=== PATIENT | male | born 1965 | race Caucasian/White ===

== ENCOUNTER 2018-12-20 17:33 | Inpatient (IN) | payer OTHER ==
[2018-12-20 18:11] VITALS: BMI 28.0
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
[2018-12-20] MEDS ORDERED: LOPERAMIDE HCL 2 MG CAPSULE PO PRN (19:20)
[2018-12-20] MEDS ORDERED: ACETAMINOPHEN 325 MG TABLET (FP) PO PRN (19:20)
[2018-12-20] MEDS ORDERED: MAG HYDROX/AL HYDROX/SIMETH 30 ML UNIT-DOSE CUP PO PRN (19:20)
[2018-12-20] MEDS ORDERED: guaiFENesin/D-METHORPHAN HB 10 ML UNIT-DOSE CUPS PO PRN (19:20)
[2018-12-20] MEDS ORDERED: P-EPHED 60MG/TRIPROLIDI 2.5MG TABLET PO PRN (19:20)
[2018-12-20] MEDS ORDERED: IBUPROFEN 400 MG TABLET (FP) PO PRN (19:20)
[2018-12-20] MEDS ORDERED: MENTHOL/PHENOL 1 EACH UD MM PRN (19:20)
[2018-12-20] MEDS ORDERED: MAGNESIUM HYDROX 2400MG/30ML ORAL SUSPENSION 30 ML CUP PO PRN (19:20)
[2018-12-20] MEDS ORDERED: MAGNESIUM CITRATE 300 ML BOTTLE PO PRN (19:20)
[2018-12-20] MEDS: THIAMINE HCL 100 MG TABLET (FP) PO SCH (22:33)
[2018-12-21 02:02] LABS: URINE APPEARANCE CLEAR; URINE BILIRUBIN NEGATIVE (<2.0 mg/dL); URINE COLOR YELLOW; URINE GLUCOSE (UA) NEGATIVE (NEGATIVE); URINE KETONE NEGATIVE (NEGATIVE); URINE LEUK ESTERASE NEGATIVE (NEGATIVE); URINE NITRITE NEGATIVE (NEGATIVE); URINE PROTEIN NEGATIVE (NEGATIVE); URINE UROBILINOGEN NEGATIVE mg/dL (0.2-1.0)
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
[2018-12-21] MEDS: PRENATAL VITAMINS W/ FOLIC ACID TABLET (FP) PO SCH (10:21)
[2018-12-21] MEDS ORDERED: TUBERCULIN PPD 5 TU/0.1ML VIAL ID ONE (10:23)
[2018-12-21 12:09] LABS: HEMATOCRIT 44.1 % (35.4-49); HEMOGLOBIN 14.7 GM/dL (11.7-16.9); MCH 28.2 pg (25.7-33.7); MCHC 33.3 g/dl (32.0-35.9); MEAN CELL VOLUME 84.6 fl (80-96); MEAN PLT VOLUME 9.7 fl (7.5-11.1); PLATELET COUNT 172 K/MM3 (134-434); RBC 5.21 M/mm3 (4.00-5.60); RDW 15.2 % (11.9-15.9); WHITE BLOOD COUNT 15.4 K/mm3 (4.0-10.0)
[2018-12-21 12:35] LABS: ALBUMIN 3.7 g/dl (3.4-5.0); ALK PHOS 74 U/L (45-117); ANION GAP 7 MMOL/L (8-16); BILIRUBIN,TOTAL 0.4 mg/dL (0.2-1); BLOOD UREA NITROGEN 16 mg/dL (7-18); CALCIUM 9.2 mg/dL (8.5-10.1); CHLORIDE 109 mmol/L (98-107); CO2 25 mmol/L (21-32); GLUCOSE,RANDOM 135 mg/dL (74-106); POTASSIUM 4.1 mmol/L (3.5-5.1); SGOT/AST 18 U/L (15-37); SGPT/ALT 29 U/L (13-61); SODIUM 142 mmol/L (136-145); TOT PROT 7.6 g/dl (6.4-8.2)
[2018-12-21] MEDS ORDERED: PT OWN MED DRAWER 7, Y5N ONE (14:51)
[2018-12-21] MEDS: BENZTROPINE MESYLATE 1 MG TABLET (FP) PO SCH (14:53)
[2018-12-21] MEDS: SERTRALINE HCL 50 MG TABLET (FP) PO SCH (14:53)
[2018-12-21] MEDS: DIVALPROEX SODIUM 500 MG TABLET E.C. PO SCH ×2 (14:53→20:59)
[2018-12-21] MEDS ORDERED: ALBUTEROL SO4 8 GM HFA INHALER IH PRN (14:59)
[2018-12-21] MEDS ORDERED: ALBUTEROL SO4 0.083% IH SOL 2.5 MG/3 ML VIAL.NEB. NEB ONE (15:05)
--- NOTE | 2018-12-21 15:10 | EKG ---
Test Reason : Blood Pressure : / mmHG Vent. Rate : 065 BPM Atrial Rate : 065 BPM P-R Int : 192 ms QRS Dur : 098 ms QT Int : 410 ms P-R-T Axes : 063 -18 050 degrees QTc Int : 426 ms NORMAL SINUS RHYTHM NORMAL ECG NO PREVIOUS ECGS AVAILABLE Confirmed by Bro Maier MD ([id number]) on 12/21/2018 3:10:21 PM Referred By: Confirmed By:Bro Maier MD
[2018-12-21] MEDS: predniSONE 20 MG TABLET (UD) PO SCH (15:16)
--- NOTE | 2018-12-21 15:43 | PN ---
[facility] Progress Note Note: PATIENT SEEN FOR ABNORMAL CHEST XRAY AND ELEVATED WBC. Vital Signs Temperature 98.3 F 12/21/18 07:36 Pulse Rate 93 H 12/21/18 07:36 Respiratory Rate 18 12/21/18 07:36 Blood Pressure 146/79 12/21/18 07:36 O2 Sat by Pulse Oximetry (%) Laboratory Tests 12/20/18 12/21/18 12/21/18 22:50 10:35 10:35 WBC 15.4 H RBC 5.21 Hgb 14.7 Hct 44.1 MCV 84.6 MCH 28.2 MCHC 33.3 RDW 15.2 D Plt Count 172 MPV 9.7 Sodium 142 Potassium 4.1 Chloride 109 H Carbon Dioxide 25 Anion Gap 7 L BUN 16 Creatinine 1.0 Creat Clearance w eGFR > 60 Random Glucose 135 H Calcium 9.2 Total Bilirubin 0.4 AST 18 ALT 29 Alkaline Phosphatase 74 Total Protein 7.6 Albumin 3.7 Urine Color Yellow Urine Appearance Clear Urine pH 7.0 D Ur Specific [place] 1.029 Urine Protein Negative Urine Glucose (UA) Negative Urine Ketones Negative Urine Blood Negative Urine Nitrite Negative Urine Bilirubin Negative Urine Urobilinogen Negative Ur Leukocyte Esterase Negative Valproic Acid HIV 1&2 Antibody Screen HIV P24 Antigen 12/21/18 12/21/18 10:35 11:35 WBC RBC Hgb Hct MCV MCH MCHC RDW Plt Count MPV Sodium Potassium Chloride Carbon Dioxide Anion Gap BUN Creatinine Creat Clearance w eGFR Random Glucose Calcium Total Bilirubin AST ALT Alkaline Phosphatase Total Protein Albumin Urine Color Urine Appearance Urine pH Ur Specific [place] Urine Protein Urine Glucose (UA) Urine Ketones Urine Blood Urine Nitrite Urine Bilirubin Urine Urobilinogen Ur Leukocyte Esterase Valproic Acid 35.9 L HIV 1&2 Antibody Screen Negative HIV P24 Antigen Negative CXR RESULTS + LEFT MID AND LOWER LUNG ZONE WITH NONCONSOLIDATED INFILTRATES. SUBJ: PATIENT DENIES CHEST PAIN, COUGH AND FEVER. + MILD MEDINA. OXYGEN SATS 95% ON ROOM AIR PE: ALERT AND ORIENTED X 3 SKIN WARM AND DRY CAR S1S2 RESP + FAINT WHEEZING RUL, DIMINISHED BREATHS SOUNDS LLL EXT FULL ROM, AMB AD MARTHA A/P: PNEUMONIA WILL START LEVAQUIN 500MG DAILY X 7 DAYS TO START NOW PREDNISONE 20MG DAILY X 5 DAYS TO START NOW ALUTEROL INH/NEB EVERY 4 HOURS PRN-STAT DOSE NOW REPEAT CXR IN ONE WEEK CONTINUE TO MONITOR CLINICALLY
[2018-12-21] MEDS: ALBUTEROL SO4 0.083% IH SOL 2.5 MG/3 ML VIAL.NEB. NEB PRN (17:55)
[2018-12-21] MEDS: THIAMINE HCL 100 MG TABLET (FP) PO SCH (20:59)
[2018-12-21] MEDS: risperiDONE 2 MG TABLET PO SCH (20:59)
[2018-12-22] MEDS: SERTRALINE HCL 50 MG TABLET (FP) PO SCH (09:52)
[2018-12-22] MEDS: BENZTROPINE MESYLATE 1 MG TABLET (FP) PO SCH (09:53)
[2018-12-22] MEDS: predniSONE 20 MG TABLET (UD) PO SCH (09:53)
[2018-12-22] MEDS: DIVALPROEX SODIUM 500 MG TABLET E.C. PO SCH ×2 (09:53→21:54)
[2018-12-22] MEDS: PRENATAL VITAMINS W/ FOLIC ACID TABLET (FP) PO SCH (09:53)
[2018-12-22] MEDS: GABAPENTIN 300 MG CAPSULE (FP) PO SCH ×2 (11:00→21:54)
--- NOTE | 2018-12-22 11:41 | EKG ---
Test Reason : Blood Pressure : / mmHG Vent. Rate : 058 BPM Atrial Rate : 058 BPM P-R Int : 198 ms QRS Dur : 104 ms QT Int : 402 ms P-R-T Axes : 067 -12 050 degrees QTc Int : 394 ms SINUS BRADYCARDIA OTHERWISE NORMAL ECG WHEN COMPARED WITH ECG OF 20-DEC-2018 21:41, NO SIGNIFICANT CHANGE WAS FOUND Confirmed by MAULIK GUARDADO MD ([id number]) on 12/22/2018 11:41:29 AM Referred By: JOSE BORREGO NP Confirmed By:MAULIK GUARDADO MD
--- NOTE | 2018-12-22 13:41 | PN ---
[facility] Progress Note Note: PATIENT SEEN TODAY FOR FOLLOW UP PNEUMONIA WITH DR. CASTANEDA. PATIENT REPORTS HAVING PRODUCTIVE COUGH WITH STREAKS OF BLOOD AND MID-STERNAL CHEST DISCOMFORT WITH INSPIRATION. PATIENT DENIES FEVER AND DIFFICULTY BREATHING ALTHOUGH HAS SOME MILD MEDINA. Vital Signs Temperature 97.9 F 12/22/18 07:09 Pulse Rate 67 12/22/18 09:30 Respiratory Rate 18 12/22/18 09:30 Blood Pressure 137/72 12/22/18 09:30 O2 Sat by Pulse Oximetry (%) Laboratory Tests 12/20/18 12/21/18 12/21/18 22:50 10:35 10:35 WBC 15.4 H RBC 5.21 Hgb 14.7 Hct 44.1 MCV 84.6 MCH 28.2 MCHC 33.3 RDW 15.2 D Plt Count 172 MPV 9.7 Sodium 142 Potassium 4.1 Chloride 109 H Carbon Dioxide 25 Anion Gap 7 L BUN 16 Creatinine 1.0 Creat Clearance w eGFR > 60 Random Glucose 135 H Calcium 9.2 Total Bilirubin 0.4 AST 18 ALT 29 Alkaline Phosphatase 74 Total Protein 7.6 Albumin 3.7 Urine Color Yellow Urine Appearance Clear Urine pH 7.0 D Ur Specific [place] 1.029 Urine Protein Negative Urine Glucose (UA) Negative Urine Ketones Negative Urine Blood Negative Urine Nitrite Negative Urine Bilirubin Negative Urine Urobilinogen Negative Ur Leukocyte Esterase Negative Valproic Acid HIV 1&2 Antibody Screen HIV P24 Antigen 12/21/18 12/21/18 10:35 11:35 WBC RBC Hgb Hct MCV MCH MCHC RDW Plt Count MPV Sodium Potassium Chloride Carbon Dioxide Anion Gap BUN Creatinine Creat Clearance w eGFR Random Glucose Calcium Total Bilirubin AST ALT Alkaline Phosphatase Total Protein Albumin Urine Color Urine Appearance Urine pH Ur Specific [place] Urine Protein Urine Glucose (UA) Urine Ketones Urine Blood Urine Nitrite Urine Bilirubin Urine Urobilinogen Ur Leukocyte Esterase Valproic Acid 35.9 L HIV 1&2 Antibody Screen Negative HIV P24 Antigen Negative PE: ALERT AND ORIENTED X 3 SKIN WARM AND DRY CAR S1S2 RESP CTA B/L UPPER LOBES, NO RHONCHI AUSCULTATED EXT FULL ROM, NO EDEMA AMB WITH CANE A/P: CXR REVIEWED WITH DR. CASTANEDA LLL/LML PNA EKG ORDERED AND SHOWS SINUS BRADYCARDIA AT 58 BPM CONTINUE LEVAQUIN/PREDNISONE/ALBUTEROL REPEAT CXR IN ONE WEEK CONTINUE TO MONITOR CLINICALLY
[2018-12-22] MEDS: THIAMINE HCL 100 MG TABLET (FP) PO SCH (21:54)
[2018-12-22] MEDS: risperiDONE 2 MG TABLET PO SCH (21:54)
[2018-12-23] MEDS ORDERED: PROMETHAZINE HCL 25 MG TABLET PO PRN (09:34)
[2018-12-23] MEDS: BENZTROPINE MESYLATE 1 MG TABLET (FP) PO SCH (09:36)
[2018-12-23] MEDS: DIVALPROEX SODIUM 500 MG TABLET E.C. PO SCH ×2 (09:36→21:51)
[2018-12-23] MEDS: predniSONE 20 MG TABLET (UD) PO SCH (09:36)
[2018-12-23] MEDS: GABAPENTIN 300 MG CAPSULE (FP) PO SCH ×2 (09:36→21:51)
[2018-12-23] MEDS: SERTRALINE HCL 50 MG TABLET (FP) PO SCH (09:36)
[2018-12-23] MEDS: PRENATAL VITAMINS W/ FOLIC ACID TABLET (FP) PO SCH (09:37)
--- NOTE | 2018-12-23 11:54 | PN ---
[facility] Progress Note Note: Patient seen for c/o nausea and acid reflux. Patient reports h/o GERD and is treated with Omeprazole 40mg daily prn. Patient offered Protonix as substitute as Omeprazole non-formulary, however,patient states medication does not work for him and would like to take his own medication. Patient retrieved Omeprazole prescription bottle from belongings and medication sent to pharmacy for verification. In meantime, will order Promethazine prn or nausea/vomiting. Vital Signs Temperature 97.9 F 12/23/18 07:16 Pulse Rate 87 12/23/18 09:30 Respiratory Rate 18 12/23/18 09:30 Blood Pressure 146/69 12/23/18 09:30 O2 Sat by Pulse Oximetry (%) =
[2018-12-23] MEDS: ALBUTEROL SO4 0.083% IH SOL 2.5 MG/3 ML VIAL.NEB. NEB PRN (13:41)
[2018-12-23] MEDS: THIAMINE HCL 100 MG TABLET (FP) PO SCH (21:51)
[2018-12-23] MEDS: risperiDONE 2 MG TABLET PO SCH (21:51)
[2018-12-23] MEDS: BUDESONIDE/FORMETEROL FUMARATE 160/4.5 mcg INHALER IH SCH (21:53)
[2018-12-24] MEDS: PATIENT'S OWN MEDICATION (NON-FORMULARY) (Omeprazole [Omeprazole] 40 MG) PO PRN (06:26)
[2018-12-24] MEDS: SERTRALINE HCL 50 MG TABLET (FP) PO SCH (09:35)
[2018-12-24] MEDS: predniSONE 20 MG TABLET (UD) PO SCH (09:36)
[2018-12-24] MEDS: DIVALPROEX SODIUM 500 MG TABLET E.C. PO SCH ×2 (09:36→21:52)
[2018-12-24] MEDS: BENZTROPINE MESYLATE 1 MG TABLET (FP) PO SCH (09:36)
[2018-12-24] MEDS: GABAPENTIN 300 MG CAPSULE (FP) PO SCH ×2 (09:36→21:52)
[2018-12-24] MEDS: PRENATAL VITAMINS W/ FOLIC ACID TABLET (FP) PO SCH (09:36)
[2018-12-24] MEDS: BUDESONIDE/FORMETEROL FUMARATE 160/4.5 mcg INHALER IH SCH ×2 (09:37→21:53)
[2018-12-24] MEDS: ALBUTEROL SO4 0.083% IH SOL 2.5 MG/3 ML VIAL.NEB. NEB PRN ×2 (09:37→14:16)
[2018-12-24] MEDS: NICOTINE POLACRILEX 4 MG GUM BC PRN ×2 (12:04→14:16)
[2018-12-24] MEDS: THIAMINE HCL 100 MG TABLET (FP) PO SCH (21:50)
[2018-12-24] MEDS: risperiDONE 2 MG TABLET PO SCH (21:52)
[2018-12-25] MEDS: PATIENT'S OWN MEDICATION (NON-FORMULARY) (Omeprazole [Omeprazole] 40 MG) PO PRN (09:02)
[2018-12-25] MEDS: BUDESONIDE/FORMETEROL FUMARATE 160/4.5 mcg INHALER IH SCH ×2 (09:02→22:13)
[2018-12-25] MEDS: SERTRALINE HCL 50 MG TABLET (FP) PO SCH (09:03)
[2018-12-25] MEDS: GABAPENTIN 300 MG CAPSULE (FP) PO SCH ×2 (09:03→22:12)
[2018-12-25] MEDS: PRENATAL VITAMINS W/ FOLIC ACID TABLET (FP) PO SCH (09:03)
[2018-12-25] MEDS: predniSONE 20 MG TABLET (UD) PO SCH (09:03)
[2018-12-25] MEDS: DIVALPROEX SODIUM 500 MG TABLET E.C. PO SCH ×2 (09:03→22:12)
[2018-12-25] MEDS: BENZTROPINE MESYLATE 1 MG TABLET (FP) PO SCH (09:03)
[2018-12-25] MEDS: ALBUTEROL SO4 0.083% IH SOL 2.5 MG/3 ML VIAL.NEB. NEB PRN (14:06)
[2018-12-25] MEDS ORDERED: PT OWN MED DRAWER 7, Y5N ONE (14:10)
[2018-12-25] MEDS: NICOTINE POLACRILEX 4 MG GUM BC PRN (14:12)
[2018-12-25] MEDS: risperiDONE 2 MG TABLET PO SCH (22:12)
[2018-12-25] MEDS: THIAMINE HCL 100 MG TABLET (FP) PO SCH (22:12)
[2018-12-26] MEDS ORDERED: PT OWN MED DRAWER 7, Y5N ONE (06:27)
[2018-12-26] MEDS: PATIENT'S OWN MEDICATION (NON-FORMULARY) (Omeprazole [Omeprazole] 40 MG) PO PRN (06:27)
[2018-12-26] MEDS: NICOTINE POLACRILEX 4 MG GUM BC PRN ×2 (07:14→13:12)
[2018-12-26] MEDS: SERTRALINE HCL 50 MG TABLET (FP) PO SCH (09:24)
[2018-12-26] MEDS: BENZTROPINE MESYLATE 1 MG TABLET (FP) PO SCH (09:24)
[2018-12-26] MEDS: DIVALPROEX SODIUM 500 MG TABLET E.C. PO SCH ×2 (09:24→22:16)
[2018-12-26] MEDS: GABAPENTIN 300 MG CAPSULE (FP) PO SCH ×2 (09:24→22:16)
[2018-12-26] MEDS: PRENATAL VITAMINS W/ FOLIC ACID TABLET (FP) PO SCH (09:25)
[2018-12-26] MEDS: BUDESONIDE/FORMETEROL FUMARATE 160/4.5 mcg INHALER IH SCH ×2 (09:25→22:16)
[2018-12-26] MEDS: predniSONE 20 MG TABLET (UD) PO SCH (09:25)
[2018-12-26] MEDS: ALBUTEROL SO4 0.083% IH SOL 2.5 MG/3 ML VIAL.NEB. NEB PRN ×2 (13:04→23:43)
[2018-12-26] MEDS: risperiDONE 2 MG TABLET PO SCH (22:16)
[2018-12-26] MEDS: THIAMINE HCL 100 MG TABLET (FP) PO SCH (22:17)
[2018-12-27] MEDS: PATIENT'S OWN MEDICATION (NON-FORMULARY) (Omeprazole [Omeprazole] 40 MG) PO PRN (06:52)
[2018-12-27] MEDS: NICOTINE POLACRILEX 4 MG GUM BC PRN ×3 (06:53→21:55)
[2018-12-27] MEDS: ALBUTEROL SO4 0.083% IH SOL 2.5 MG/3 ML VIAL.NEB. NEB PRN ×2 (07:12→21:54)
[2018-12-27] MEDS: PRENATAL VITAMINS W/ FOLIC ACID TABLET (FP) PO SCH (09:55)
[2018-12-27] MEDS: DIVALPROEX SODIUM 500 MG TABLET E.C. PO SCH ×2 (09:56→21:49)
[2018-12-27] MEDS: SERTRALINE HCL 50 MG TABLET (FP) PO SCH (09:56)
[2018-12-27] MEDS: BENZTROPINE MESYLATE 1 MG TABLET (FP) PO SCH (09:56)
[2018-12-27] MEDS: GABAPENTIN 300 MG CAPSULE (FP) PO SCH ×2 (09:56→21:48)
[2018-12-27] MEDS: BUDESONIDE/FORMETEROL FUMARATE 160/4.5 mcg INHALER IH SCH ×2 (09:56→21:50)
[2018-12-27] MEDS: THIAMINE HCL 100 MG TABLET (FP) PO SCH (21:48)
[2018-12-27] MEDS: MELATONIN 5 MG TABLETS PO PRN (21:49)
[2018-12-27] MEDS: risperiDONE 2 MG TABLET PO SCH (21:49)
[2018-12-28] MEDS: NICOTINE POLACRILEX 4 MG GUM BC PRN ×5 (07:21→21:55)
[2018-12-28] MEDS: ALBUTEROL SO4 0.083% IH SOL 2.5 MG/3 ML VIAL.NEB. NEB PRN (08:24)
[2018-12-28] MEDS: GABAPENTIN 300 MG CAPSULE (FP) PO SCH ×2 (09:43→21:53)
[2018-12-28] MEDS: DIVALPROEX SODIUM 500 MG TABLET E.C. PO SCH ×2 (09:43→21:53)
[2018-12-28] MEDS: PRENATAL VITAMINS W/ FOLIC ACID TABLET (FP) PO SCH (09:43)
[2018-12-28] MEDS: SERTRALINE HCL 50 MG TABLET (FP) PO SCH (09:44)
[2018-12-28] MEDS: BENZTROPINE MESYLATE 1 MG TABLET (FP) PO SCH (09:44)
[2018-12-28] MEDS: BUDESONIDE/FORMETEROL FUMARATE 160/4.5 mcg INHALER IH SCH ×2 (09:46→21:58)
[2018-12-28] MEDS: THIAMINE HCL 100 MG TABLET (FP) PO SCH (21:53)
[2018-12-28] MEDS: risperiDONE 2 MG TABLET PO SCH (21:53)
[2018-12-28] MEDS: MELATONIN 5 MG TABLETS PO PRN (21:54)
[2018-12-29] MEDS: PRENATAL VITAMINS W/ FOLIC ACID TABLET (FP) PO SCH (10:01)
[2018-12-29] MEDS: BENZTROPINE MESYLATE 1 MG TABLET (FP) PO SCH (10:01)
[2018-12-29] MEDS: DIVALPROEX SODIUM 500 MG TABLET E.C. PO SCH ×2 (10:01→21:48)
[2018-12-29] MEDS: GABAPENTIN 300 MG CAPSULE (FP) PO SCH ×2 (10:01→21:48)
[2018-12-29] MEDS: SERTRALINE HCL 50 MG TABLET (FP) PO SCH (10:01)
[2018-12-29] MEDS: NICOTINE POLACRILEX 4 MG GUM BC PRN ×4 (10:03→21:50)
[2018-12-29] MEDS: BUDESONIDE/FORMETEROL FUMARATE 160/4.5 mcg INHALER IH SCH ×2 (10:03→23:01)
--- NOTE | 2018-12-29 10:26 | PN ---
[facility] Progress Note Note: CXR RESULTS SHOW SIGNIFICANT CLEARING OF INFILTRATES. PATIENT REPORTS FEELING MUCH BETTER. PATIENT DENIES N/V/D, CP, SOB AND DIZZINESS. Vital Signs Temperature 98 F 12/29/18 07:01 Pulse Rate 69 12/29/18 07:01 Respiratory Rate 20 12/29/18 07:01 Blood Pressure 133/88 12/29/18 07:01 O2 Sat by Pulse Oximetry (%) PE: SKIN WARM AND DRY ALERT AND ORIENTED X 3 CAR S1S2 RESP CTA BL, +FAINT SCATTERED WHEEZES EXT AMB WITH CANE AD MARTHA A/P: PNA MUCH IMPROVED LEVAQUIN 500MG QD X 3 MORE DAYS CONTINUE ALBUTEROL NEB/INH ORDERED CONTINUE TO MONITOR CLINICALLY
[2018-12-29] MEDS: PATIENT'S OWN MEDICATION (NON-FORMULARY) (Omeprazole [Omeprazole] 40 MG) PO PRN (13:17)
[2018-12-29] MEDS ORDERED: PT OWN MED DRAWER 7, Y5N ONE (13:19)
[2018-12-29] MEDS: THIAMINE HCL 100 MG TABLET (FP) PO SCH (21:47)
[2018-12-29] MEDS: risperiDONE 2 MG TABLET PO SCH (21:48)
[2018-12-29] MEDS: MELATONIN 5 MG TABLETS PO PRN (21:48)
[2018-12-30] MEDS: ALBUTEROL SO4 0.083% IH SOL 2.5 MG/3 ML VIAL.NEB. NEB PRN ×2 (03:20→16:38)
[2018-12-30] MEDS: PATIENT'S OWN MEDICATION (NON-FORMULARY) (Omeprazole [Omeprazole] 40 MG) PO PRN (06:34)
[2018-12-30] MEDS: DIVALPROEX SODIUM 500 MG TABLET E.C. PO SCH ×2 (09:58→22:13)
[2018-12-30] MEDS: PRENATAL VITAMINS W/ FOLIC ACID TABLET (FP) PO SCH (09:58)
[2018-12-30] MEDS: GABAPENTIN 300 MG CAPSULE (FP) PO SCH ×2 (09:58→22:13)
[2018-12-30] MEDS: BENZTROPINE MESYLATE 1 MG TABLET (FP) PO SCH (09:58)
[2018-12-30] MEDS: SERTRALINE HCL 50 MG TABLET (FP) PO SCH (10:01)
[2018-12-30] MEDS: BUDESONIDE/FORMETEROL FUMARATE 160/4.5 mcg INHALER IH SCH ×2 (10:01→22:15)
[2018-12-30] MEDS: NICOTINE POLACRILEX 4 MG GUM BC PRN ×2 (10:02→16:39)
[2018-12-30 11:04] LABS: BASO % 0.8 % (0-2.0); EOS % 1.3 % (0-4.5); HEMATOCRIT 41.6 % (35.4-49); HEMOGLOBIN 13.8 GM/dL (11.7-16.9); LYMPH % 25.1 % (8-40); MCH 28.3 pg (25.7-33.7); MCHC 33.2 g/dl (32.0-35.9); MEAN CELL VOLUME 85.2 fl (80-96); MEAN PLT VOLUME 9.3 fl (7.5-11.1); MONO % 10.5 % (3.8-10.2); NEUT % 62.3 % (42.8-82.8); PLATELET COUNT 190 K/MM3 (134-434); RBC 4.89 M/mm3 (4.00-5.60); RDW 15.2 % (11.9-15.9); WHITE BLOOD COUNT 8.5 K/mm3 (4.0-10.0)
[2018-12-30 14:23] LABS: ANISOCYTOSIS 1+; MACROCYTOSIS 0; OVALOCYTE 1+; PLATELET ESTIMATE NORMAL
[2018-12-30] MEDS: THIAMINE HCL 100 MG TABLET (FP) PO SCH (22:13)
[2018-12-30] MEDS: risperiDONE 2 MG TABLET PO SCH (22:13)
[2018-12-30] MEDS: MELATONIN 5 MG TABLETS PO PRN (22:15)
[2018-12-31] MEDS: ALBUTEROL SO4 0.083% IH SOL 2.5 MG/3 ML VIAL.NEB. NEB PRN ×3 (03:48→14:09)
[2018-12-31] MEDS: PATIENT'S OWN MEDICATION (NON-FORMULARY) (Omeprazole [Omeprazole] 40 MG) PO PRN (06:23)
[2018-12-31] MEDS: NICOTINE POLACRILEX 4 MG GUM BC PRN ×3 (06:24→22:06)
[2018-12-31] MEDS ORDERED: PT OWN MED DRAWER 7, Y5N ONE (06:24)
[2018-12-31] MEDS: DIVALPROEX SODIUM 500 MG TABLET E.C. PO SCH ×2 (09:59→22:06)
[2018-12-31] MEDS: BUDESONIDE/FORMETEROL FUMARATE 160/4.5 mcg INHALER IH SCH ×2 (09:59→22:09)
[2018-12-31] MEDS: SERTRALINE HCL 50 MG TABLET (FP) PO SCH (09:59)
[2018-12-31] MEDS: BENZTROPINE MESYLATE 1 MG TABLET (FP) PO SCH (09:59)
[2018-12-31] MEDS: PRENATAL VITAMINS W/ FOLIC ACID TABLET (FP) PO SCH (09:59)
[2018-12-31] MEDS: GABAPENTIN 300 MG CAPSULE (FP) PO SCH ×2 (09:59→22:05)
[2018-12-31] MEDS: ALBUTEROL SO4 8 GM HFA INHALER IH PRN (16:01)
[2018-12-31] MEDS: risperiDONE 2 MG TABLET PO SCH (22:05)
[2018-12-31] MEDS: THIAMINE HCL 100 MG TABLET (FP) PO SCH (22:05)
[2018-12-31] MEDS: MELATONIN 5 MG TABLETS PO PRN (22:06)
[2019-01-01] MEDS: PATIENT'S OWN MEDICATION (NON-FORMULARY) (Omeprazole [Omeprazole] 40 MG) PO PRN (06:31)
[2019-01-01] MEDS: NICOTINE POLACRILEX 4 MG GUM BC PRN ×2 (06:31→09:59)
[2019-01-01] MEDS: PRENATAL VITAMINS W/ FOLIC ACID TABLET (FP) PO SCH (09:58)
[2019-01-01] MEDS: GABAPENTIN 300 MG CAPSULE (FP) PO SCH ×2 (09:58→21:10)
[2019-01-01] MEDS: DIVALPROEX SODIUM 500 MG TABLET E.C. PO SCH ×2 (09:58→21:10)
[2019-01-01] MEDS: BENZTROPINE MESYLATE 1 MG TABLET (FP) PO SCH (09:58)
[2019-01-01] MEDS: BUDESONIDE/FORMETEROL FUMARATE 160/4.5 mcg INHALER IH SCH ×2 (09:59→21:11)
[2019-01-01] MEDS: ALBUTEROL SO4 0.083% IH SOL 2.5 MG/3 ML VIAL.NEB. NEB PRN (09:59)
[2019-01-01] MEDS: SERTRALINE HCL 50 MG TABLET (FP) PO SCH (09:59)
--- NOTE | 2019-01-01 17:56 | PN ---
[facility] Progress Note Note: superficial abrasion of left leg ,no bleeding,bacitracin ointment bid,no calf tenderness,monitoring
[2019-01-01] MEDS: BACITRACIN 0.9 GM PACKET TP SCH (21:09)
[2019-01-01] MEDS: THIAMINE HCL 100 MG TABLET (FP) PO SCH (21:09)
[2019-01-01] MEDS: MELATONIN 5 MG TABLETS PO PRN (21:10)
[2019-01-01] MEDS: risperiDONE 2 MG TABLET PO SCH (21:10)
[2019-01-02] MEDS: PATIENT'S OWN MEDICATION (NON-FORMULARY) (Omeprazole [Omeprazole] 40 MG) PO PRN (07:42)
[2019-01-02] MEDS: ALBUTEROL SO4 0.083% IH SOL 2.5 MG/3 ML VIAL.NEB. NEB PRN (10:10)
[2019-01-02] MEDS: SERTRALINE HCL 50 MG TABLET (FP) PO SCH (10:23)
[2019-01-02] MEDS: PRENATAL VITAMINS W/ FOLIC ACID TABLET (FP) PO SCH (10:23)
[2019-01-02] MEDS: BENZTROPINE MESYLATE 1 MG TABLET (FP) PO SCH (10:24)
[2019-01-02] MEDS: BUDESONIDE/FORMETEROL FUMARATE 160/4.5 mcg INHALER IH SCH ×2 (10:24→21:57)
[2019-01-02] MEDS: ALBUTEROL SO4 8 GM HFA INHALER IH PRN ×2 (10:24→21:59)
[2019-01-02] MEDS: BACITRACIN 0.9 GM PACKET TP SCH ×2 (10:24→21:57)
[2019-01-02] MEDS: GABAPENTIN 300 MG CAPSULE (FP) PO SCH ×2 (10:24→21:56)
[2019-01-02] MEDS: DIVALPROEX SODIUM 500 MG TABLET E.C. PO SCH ×2 (10:24→21:56)
[2019-01-02] MEDS: THIAMINE HCL 100 MG TABLET (FP) PO SCH (21:56)
[2019-01-02] MEDS: risperiDONE 2 MG TABLET PO SCH (21:56)
[2019-01-02] MEDS: MELATONIN 5 MG TABLETS PO PRN (21:57)
[2019-01-02] MEDS: NICOTINE POLACRILEX 4 MG GUM BC PRN (21:58)
[2019-01-03] MEDS: PATIENT'S OWN MEDICATION (NON-FORMULARY) (Omeprazole [Omeprazole] 40 MG) PO PRN (05:52)
[2019-01-03] MEDS: NICOTINE POLACRILEX 4 MG GUM BC PRN ×4 (05:53→21:05)
[2019-01-03] MEDS: PRENATAL VITAMINS W/ FOLIC ACID TABLET (FP) PO SCH (09:48)
[2019-01-03] MEDS: BENZTROPINE MESYLATE 1 MG TABLET (FP) PO SCH (09:49)
[2019-01-03] MEDS: SERTRALINE HCL 50 MG TABLET (FP) PO SCH (09:49)
[2019-01-03] MEDS: BACITRACIN 0.9 GM PACKET TP SCH ×2 (09:49→21:07)
[2019-01-03] MEDS: DIVALPROEX SODIUM 500 MG TABLET E.C. PO SCH ×2 (09:49→21:04)
[2019-01-03] MEDS: GABAPENTIN 300 MG CAPSULE (FP) PO SCH ×2 (09:50→21:04)
[2019-01-03] MEDS: ALBUTEROL SO4 8 GM HFA INHALER IH PRN (09:50)
[2019-01-03] MEDS: BUDESONIDE/FORMETEROL FUMARATE 160/4.5 mcg INHALER IH SCH ×2 (10:38→21:06)
[2019-01-03] MEDS ORDERED: PT OWN MED DRAWER 7, Y5N ONE (20:16)
[2019-01-03] MEDS: THIAMINE HCL 100 MG TABLET (FP) PO SCH (21:04)
[2019-01-03] MEDS: risperiDONE 2 MG TABLET PO SCH (21:04)
[2019-01-03] MEDS: MELATONIN 5 MG TABLETS PO PRN (21:05)
[2019-01-04] MEDS: PATIENT'S OWN MEDICATION (NON-FORMULARY) (Omeprazole [Omeprazole] 40 MG) PO PRN (06:19)
[2019-01-04] MEDS: NICOTINE POLACRILEX 4 MG GUM BC PRN ×3 (06:19→22:01)
[2019-01-04] MEDS: SERTRALINE HCL 50 MG TABLET (FP) PO SCH (10:04)
[2019-01-04] MEDS: PRENATAL VITAMINS W/ FOLIC ACID TABLET (FP) PO SCH (10:04)
[2019-01-04] MEDS: GABAPENTIN 300 MG CAPSULE (FP) PO SCH ×2 (10:04→21:59)
[2019-01-04] MEDS: BENZTROPINE MESYLATE 1 MG TABLET (FP) PO SCH (10:04)
[2019-01-04] MEDS: DIVALPROEX SODIUM 500 MG TABLET E.C. PO SCH ×2 (10:04→21:59)
[2019-01-04] MEDS: BACITRACIN 0.9 GM PACKET TP SCH ×2 (10:06→21:59)
[2019-01-04] MEDS: BUDESONIDE/FORMETEROL FUMARATE 160/4.5 mcg INHALER IH SCH ×2 (10:50→21:59)
[2019-01-04] MEDS: ALBUTEROL SO4 8 GM HFA INHALER IH PRN (21:59)
[2019-01-04] MEDS: risperiDONE 2 MG TABLET PO SCH (21:59)
[2019-01-04] MEDS: THIAMINE HCL 100 MG TABLET (FP) PO SCH (21:59)
[2019-01-05] MEDS: PATIENT'S OWN MEDICATION (NON-FORMULARY) (Omeprazole [Omeprazole] 40 MG) PO PRN (06:26)
[2019-01-05] MEDS: DIVALPROEX SODIUM 500 MG TABLET E.C. PO SCH ×2 (09:58→21:30)
[2019-01-05] MEDS: GABAPENTIN 300 MG CAPSULE (FP) PO SCH ×2 (09:58→21:30)
[2019-01-05] MEDS: BUDESONIDE/FORMETEROL FUMARATE 160/4.5 mcg INHALER IH SCH ×2 (09:58→21:55)
[2019-01-05] MEDS: BACITRACIN 0.9 GM PACKET TP SCH (09:58)
[2019-01-05] MEDS: PRENATAL VITAMINS W/ FOLIC ACID TABLET (FP) PO SCH (09:58)
[2019-01-05] MEDS: BENZTROPINE MESYLATE 1 MG TABLET (FP) PO SCH (09:58)
[2019-01-05] MEDS: SERTRALINE HCL 50 MG TABLET (FP) PO SCH (09:58)
[2019-01-05] MEDS: NICOTINE POLACRILEX 4 MG GUM BC PRN ×2 (09:59→21:32)
--- NOTE | 2019-01-05 10:13 | PN ---
[facility] Progress Note Note: PATIENT SEEN FOR C/O LBP DUE TO HX OF HERNIATED DISCS AND LEFT LEG BLISTER AND REDNESS. Vital Signs Temperature 97.4 F L 01/05/19 07:02 Pulse Rate 58 L 01/05/19 07:02 Respiratory Rate 18 01/05/19 07:02 Blood Pressure 149/90 01/05/19 07:02 O2 Sat by Pulse Oximetry (%) Laboratory Tests 12/20/18 12/21/18 12/21/18 22:50 10:35 10:35 WBC 15.4 H RBC 5.21 Hgb 14.7 Hct 44.1 MCV 84.6 MCH 28.2 MCHC 33.3 RDW 15.2 D Plt Count 172 MPV 9.7 Absolute Neuts (auto) Neutrophils % Neutrophils % (Manual) Band Neutrophils % Lymphocytes % Lymphocytes % (Manual) Monocytes % Monocytes % (Manual) Eosinophils % Eosinophils % (Manual) Basophils % Basophils % (Manual) Myelocytes % (Man) Promyelocytes % (Man) Blast Cells % (Manual) Nucleated RBC % Metamyelocytes Hypochromia Platelet Estimate Polychromasia Poikilocytosis Anisocytosis Microcytosis Macrocytosis Ovalocytes Sodium 142 Potassium 4.1 Chloride 109 H Carbon Dioxide 25 Anion Gap 7 L BUN 16 Creatinine 1.0 Creat Clearance w eGFR > 60 Random Glucose 135 H Calcium 9.2 Total Bilirubin 0.4 AST 18 ALT 29 Alkaline Phosphatase 74 Total Protein 7.6 Albumin 3.7 Urine Color Yellow Urine Appearance Clear Urine pH 7.0 D Ur Specific [place] 1.029 Urine Protein Negative Urine Glucose (UA) Negative Urine Ketones Negative Urine Blood Negative Urine Nitrite Negative Urine Bilirubin Negative Urine Urobilinogen Negative Ur Leukocyte Esterase Negative Valproic Acid RPR Titer HIV 1&2 Antibody Screen HIV P24 Antigen 12/21/18 12/21/18 12/21/18 10:35 10:35 11:35 WBC RBC Hgb Hct MCV MCH MCHC RDW Plt Count MPV Absolute Neuts (auto) Neutrophils % Neutrophils % (Manual) Band Neutrophils % Lymphocytes % Lymphocytes % (Manual) Monocytes % Monocytes % (Manual) Eosinophils % Eosinophils % (Manual) Basophils % Basophils % (Manual) Myelocytes % (Man) Promyelocytes % (Man) Blast Cells % (Manual) Nucleated RBC % Metamyelocytes Hypochromia Platelet Estimate Polychromasia Poikilocytosis Anisocytosis Microcytosis Macrocytosis Ovalocytes Sodium Potassium Chloride Carbon Dioxide Anion Gap BUN Creatinine Creat Clearance w eGFR Random Glucose Calcium Total Bilirubin AST ALT Alkaline Phosphatase Total Protein Albumin Urine Color Urine Appearance Urine pH Ur Specific [place] Urine Protein Urine Glucose (UA) Urine Ketones Urine Blood Urine Nitrite Urine Bilirubin Urine Urobilinogen Ur Leukocyte Esterase Valproic Acid 35.9 L RPR Titer Nonreactive HIV 1&2 Antibody Screen Negative HIV P24 Antigen Negative 12/30/18 08:05 WBC 8.5 RBC 4.89 Hgb 13.8 Hct 41.6 MCV 85.2 MCH 28.3 MCHC 33.2 RDW 15.2 Plt Count 190 MPV 9.3 Absolute Neuts (auto) 5.3 Neutrophils % 62.3 Neutrophils % (Manual) 62.6 Band Neutrophils % 0.0 Lymphocytes % 25.1 Lymphocytes % (Manual) 24.3 Monocytes % 10.5 H Monocytes % (Manual) 7 Eosinophils % 1.3 Eosinophils % (Manual) 0.0 Basophils % 0.8 Basophils % (Manual) 0.0 Myelocytes % (Man) 4 H Promyelocytes % (Man) 0 Blast Cells % (Manual) 0 Nucleated RBC % 0 Metamyelocytes 2 Hypochromia 0 Platelet Estimate Normal Polychromasia 0 Poikilocytosis 1+ Anisocytosis 1+ Microcytosis 1+ Macrocytosis 0 Ovalocytes 1+ Sodium Potassium Chloride Carbon Dioxide Anion Gap BUN Creatinine Creat Clearance w eGFR Random Glucose Calcium Total Bilirubin AST ALT Alkaline Phosphatase Total Protein Albumin Urine Color Urine Appearance Urine pH Ur Specific [place] Urine Protein Urine Glucose (UA) Urine Ketones Urine Blood Urine Nitrite Urine Bilirubin Urine Urobilinogen Ur Leukocyte Esterase Valproic Acid RPR Titer HIV 1&2 Antibody Screen HIV P24 Antigen PE: ALERT AND ORIENTED X 3 SKIN WARM AND DRY MS +TACTILE TENDERNESS TO LS SPINE AREA, PATIENT AMB AD MARTHA EXT NO EDEMA, LEFT INNER LOWER LEG WITH SMALL BLISTER AND CIRCULAR SURROUNDING REDNESS, NON-TENDER A/P: LEG BLISTER/REDNESS LBP WILL ADD FLEXERIL 10MG PRN D/C BACITRACIN AND START BACTROBAN BID TO LEFT LEG BLISTER NO ORAL ABX DUE TO RECENT 10 DAY COURSE OF TX WITH LEVAQUIN WILL CONTINUE TO MONITOR CLINICALLY
[2019-01-05] MEDS: MUPIROCIN 2% TOPICAL OINTMENT 22 GM TUBE TP SCH ×2 (11:54→21:55)
[2019-01-05] MEDS: CYCLOBENZAPRINE HCL 10 MG TABLET (FP) PO PRN ×2 (12:59→21:31)
[2019-01-05] MEDS: THIAMINE HCL 100 MG TABLET (FP) PO SCH (21:30)
[2019-01-05] MEDS: risperiDONE 2 MG TABLET PO SCH (21:30)
[2019-01-05] MEDS: ALBUTEROL SO4 8 GM HFA INHALER IH PRN (21:32)
[2019-01-06] MEDS: PATIENT'S OWN MEDICATION (NON-FORMULARY) (Omeprazole [Omeprazole] 40 MG) PO PRN (06:12)
[2019-01-06] MEDS: CYCLOBENZAPRINE HCL 10 MG TABLET (FP) PO PRN ×3 (06:12→21:57)
[2019-01-06] MEDS: NICOTINE POLACRILEX 4 MG GUM BC PRN ×4 (06:13→21:57)
[2019-01-06] MEDS: BENZTROPINE MESYLATE 1 MG TABLET (FP) PO SCH (10:06)
[2019-01-06] MEDS: GABAPENTIN 300 MG CAPSULE (FP) PO SCH ×2 (10:06→21:55)
[2019-01-06] MEDS: DIVALPROEX SODIUM 500 MG TABLET E.C. PO SCH ×2 (10:06→21:55)
[2019-01-06] MEDS: PRENATAL VITAMINS W/ FOLIC ACID TABLET (FP) PO SCH (10:06)
[2019-01-06] MEDS: SERTRALINE HCL 50 MG TABLET (FP) PO SCH (10:06)
[2019-01-06] MEDS: MUPIROCIN 2% TOPICAL OINTMENT 22 GM TUBE TP SCH ×2 (10:08→21:59)
[2019-01-06] MEDS: BUDESONIDE/FORMETEROL FUMARATE 160/4.5 mcg INHALER IH SCH ×2 (10:17→21:59)
[2019-01-06] MEDS: THIAMINE HCL 100 MG TABLET (FP) PO SCH (21:55)
[2019-01-06] MEDS: risperiDONE 2 MG TABLET PO SCH (21:55)
[2019-01-06] MEDS: ALBUTEROL SO4 8 GM HFA INHALER IH PRN (21:58)
[2019-01-07] MEDS: PATIENT'S OWN MEDICATION (NON-FORMULARY) (Omeprazole [Omeprazole] 40 MG) PO PRN (06:27)
[2019-01-07] MEDS: CYCLOBENZAPRINE HCL 10 MG TABLET (FP) PO PRN ×2 (06:27→17:55)
[2019-01-07] MEDS: NICOTINE POLACRILEX 4 MG GUM BC PRN ×2 (06:27→17:57)
[2019-01-07] MEDS: PRENATAL VITAMINS W/ FOLIC ACID TABLET (FP) PO SCH (09:52)
[2019-01-07] MEDS: GABAPENTIN 300 MG CAPSULE (FP) PO SCH ×2 (09:52→22:04)
[2019-01-07] MEDS: BENZTROPINE MESYLATE 1 MG TABLET (FP) PO SCH (09:52)
[2019-01-07] MEDS: SERTRALINE HCL 50 MG TABLET (FP) PO SCH (09:53)
[2019-01-07] MEDS: MUPIROCIN 2% TOPICAL OINTMENT 22 GM TUBE TP SCH ×2 (09:53→22:04)
[2019-01-07] MEDS: DIVALPROEX SODIUM 500 MG TABLET E.C. PO SCH ×2 (09:53→22:04)
[2019-01-07] MEDS: BUDESONIDE/FORMETEROL FUMARATE 160/4.5 mcg INHALER IH SCH ×2 (09:54→22:04)
[2019-01-07] MEDS: ALBUTEROL SO4 0.083% IH SOL 2.5 MG/3 ML VIAL.NEB. NEB PRN (09:54)
[2019-01-07] MEDS: THIAMINE HCL 100 MG TABLET (FP) PO SCH (22:03)
[2019-01-07] MEDS: risperiDONE 2 MG TABLET PO SCH (22:04)
[2019-01-07] MEDS: ALBUTEROL SO4 8 GM HFA INHALER IH PRN (22:06)
[2019-01-08] MEDS: ALBUTEROL SO4 0.083% IH SOL 2.5 MG/3 ML VIAL.NEB. NEB PRN (01:07)
[2019-01-08] MEDS: NICOTINE POLACRILEX 4 MG GUM BC PRN ×4 (06:27→21:55)
[2019-01-08] MEDS: PATIENT'S OWN MEDICATION (NON-FORMULARY) (Omeprazole [Omeprazole] 40 MG) PO PRN (06:27)
[2019-01-08] MEDS: CYCLOBENZAPRINE HCL 10 MG TABLET (FP) PO PRN ×3 (06:27→21:55)
[2019-01-08] MEDS: DIVALPROEX SODIUM 500 MG TABLET E.C. PO SCH ×2 (09:57→21:53)
[2019-01-08] MEDS: SERTRALINE HCL 50 MG TABLET (FP) PO SCH (09:57)
[2019-01-08] MEDS: PRENATAL VITAMINS W/ FOLIC ACID TABLET (FP) PO SCH (09:57)
[2019-01-08] MEDS: GABAPENTIN 300 MG CAPSULE (FP) PO SCH ×2 (09:57→21:53)
[2019-01-08] MEDS: BENZTROPINE MESYLATE 1 MG TABLET (FP) PO SCH (09:57)
[2019-01-08] MEDS: MUPIROCIN 2% TOPICAL OINTMENT 22 GM TUBE TP SCH ×2 (09:57→21:53)
[2019-01-08] MEDS: BUDESONIDE/FORMETEROL FUMARATE 160/4.5 mcg INHALER IH SCH ×2 (09:58→21:54)
[2019-01-08] MEDS: ALBUTEROL SO4 8 GM HFA INHALER IH PRN ×2 (09:59→21:55)
[2019-01-08] MEDS: THIAMINE HCL 100 MG TABLET (FP) PO SCH (21:53)
[2019-01-08] MEDS: risperiDONE 2 MG TABLET PO SCH (21:53)
[2019-01-09] MEDS: PATIENT'S OWN MEDICATION (NON-FORMULARY) (Omeprazole [Omeprazole] 40 MG) PO PRN (06:58)
[2019-01-09] MEDS: PRENATAL VITAMINS W/ FOLIC ACID TABLET (FP) PO SCH (09:37)
[2019-01-09] MEDS: MUPIROCIN 2% TOPICAL OINTMENT 22 GM TUBE TP SCH ×2 (09:37→21:37)
[2019-01-09] MEDS: BUDESONIDE/FORMETEROL FUMARATE 160/4.5 mcg INHALER IH SCH ×2 (09:37→21:37)
[2019-01-09] MEDS: BENZTROPINE MESYLATE 1 MG TABLET (FP) PO SCH (09:37)
[2019-01-09] MEDS: DIVALPROEX SODIUM 500 MG TABLET E.C. PO SCH ×2 (09:37→21:37)
[2019-01-09] MEDS: GABAPENTIN 300 MG CAPSULE (FP) PO SCH ×2 (09:37→21:37)
[2019-01-09] MEDS: CYCLOBENZAPRINE HCL 10 MG TABLET (FP) PO PRN ×2 (09:37→21:39)
[2019-01-09] MEDS: SERTRALINE HCL 50 MG TABLET (FP) PO SCH (09:37)
[2019-01-09] MEDS: risperiDONE 2 MG TABLET PO SCH (21:37)
[2019-01-09] MEDS: THIAMINE HCL 100 MG TABLET (FP) PO SCH (21:37)
[2019-01-09] MEDS: NICOTINE POLACRILEX 4 MG GUM BC PRN (21:39)
[2019-01-10] MEDS: PATIENT'S OWN MEDICATION (NON-FORMULARY) (Omeprazole [Omeprazole] 40 MG) PO PRN (05:53)
[2019-01-10] MEDS: NICOTINE POLACRILEX 4 MG GUM BC PRN ×2 (05:54→15:34)
[2019-01-10] MEDS: CYCLOBENZAPRINE HCL 10 MG TABLET (FP) PO PRN (05:54)
--- NOTE | 2019-01-10 09:49 | PN ---
[facility] Progress Note Note: PATIENT SEEN FOR C/O LEFT FOOT SWELLING AND URINARY INCONTINENCE. PATIENT STATES HE WAS TREATED IN PAST WITH "WATER PILL" FOR EDEMA BUT CANNOT REMEMBER NAME. PATIENT ALSO STATES FOR THE PAST WEEK HE HAS BEEN HAVING EPISODES OF INCONTINENCE OF URINE. PATIENT DENIES BURNING UPON URINATION BUT C/O URGENCY AND FREQUENCY. DENIES HX OF DM BUT REPORTS BOTH HIS PARENTS HAVE DIABETES. PATIENT DENIES FEVER, PELVIC PAIN AND B/L CALVES TENDERNESS. Laboratory Tests 12/20/18 12/21/18 12/21/18 22:50 10:35 10:35 WBC 15.4 H RBC 5.21 Hgb 14.7 Hct 44.1 MCV 84.6 MCH 28.2 MCHC 33.3 RDW 15.2 D Plt Count 172 MPV 9.7 Absolute Neuts (auto) Neutrophils % Neutrophils % (Manual) Band Neutrophils % Lymphocytes % Lymphocytes % (Manual) Monocytes % Monocytes % (Manual) Eosinophils % Eosinophils % (Manual) Basophils % Basophils % (Manual) Myelocytes % (Man) Promyelocytes % (Man) Blast Cells % (Manual) Nucleated RBC % Metamyelocytes Hypochromia Platelet Estimate Polychromasia Poikilocytosis Anisocytosis Microcytosis Macrocytosis Ovalocytes Sodium 142 Potassium 4.1 Chloride 109 H Carbon Dioxide 25 Anion Gap 7 L BUN 16 Creatinine 1.0 Creat Clearance w eGFR > 60 Random Glucose 135 H Calcium 9.2 Total Bilirubin 0.4 AST 18 ALT 29 Alkaline Phosphatase 74 Total Protein 7.6 Albumin 3.7 Urine Color Yellow Urine Appearance Clear Urine pH 7.0 D Ur Specific [place] 1.029 Urine Protein Negative Urine Glucose (UA) Negative Urine Ketones Negative Urine Blood Negative Urine Nitrite Negative Urine Bilirubin Negative Urine Urobilinogen Negative Ur Leukocyte Esterase Negative Valproic Acid RPR Titer HIV 1&2 Antibody Screen HIV P24 Antigen 12/21/18 12/21/18 12/21/18 10:35 10:35 11:35 WBC RBC Hgb Hct MCV MCH MCHC RDW Plt Count MPV Absolute Neuts (auto) Neutrophils % Neutrophils % (Manual) Band Neutrophils % Lymphocytes % Lymphocytes % (Manual) Monocytes % Monocytes % (Manual) Eosinophils % Eosinophils % (Manual) Basophils % Basophils % (Manual) Myelocytes % (Man) Promyelocytes % (Man) Blast Cells % (Manual) Nucleated RBC % Metamyelocytes Hypochromia Platelet Estimate Polychromasia Poikilocytosis Anisocytosis Microcytosis Macrocytosis Ovalocytes Sodium Potassium Chloride Carbon Dioxide Anion Gap BUN Creatinine Creat Clearance w eGFR Random Glucose Calcium Total Bilirubin AST ALT Alkaline Phosphatase Total Protein Albumin Urine Color Urine Appearance Urine pH Ur Specific [place] Urine Protein Urine Glucose (UA) Urine Ketones Urine Blood Urine Nitrite Urine Bilirubin Urine Urobilinogen Ur Leukocyte Esterase Valproic Acid 35.9 L RPR Titer Nonreactive HIV 1&2 Antibody Screen Negative HIV P24 Antigen Negative 12/30/18 08:05 WBC 8.5 RBC 4.89 Hgb 13.8 Hct 41.6 MCV 85.2 MCH 28.3 MCHC 33.2 RDW 15.2 Plt Count 190 MPV 9.3 Absolute Neuts (auto) 5.3 Neutrophils % 62.3 Neutrophils % (Manual) 62.6 Band Neutrophils % 0.0 Lymphocytes % 25.1 Lymphocytes % (Manual) 24.3 Monocytes % 10.5 H Monocytes % (Manual) 7 Eosinophils % 1.3 Eosinophils % (Manual) 0.0 Basophils % 0.8 Basophils % (Manual) 0.0 Myelocytes % (Man) 4 H Promyelocytes % (Man) 0 Blast Cells % (Manual) 0 Nucleated RBC % 0 Metamyelocytes 2 Hypochromia 0 Platelet Estimate Normal Polychromasia 0 Poikilocytosis 1+ Anisocytosis 1+ Microcytosis 1+ Macrocytosis 0 Ovalocytes 1+ Sodium Potassium Chloride Carbon Dioxide Anion Gap BUN Creatinine Creat Clearance w eGFR Random Glucose Calcium Total Bilirubin AST ALT Alkaline Phosphatase Total Protein Albumin Urine Color Urine Appearance Urine pH Ur Specific [place] Urine Protein Urine Glucose (UA) Urine Ketones Urine Blood Urine Nitrite Urine Bilirubin Urine Urobilinogen Ur Leukocyte Esterase Valproic Acid RPR Titer HIV 1&2 Antibody Screen HIV P24 Antigen PE: ALERT AND ORIENTED X 3 SKIN WARM AND DRY GI NT, ND, +OBESITY, NO PELVIC TENDERNESS EXT LEFT INNER ANKLE ABRASION/BLISTER RESOLVING, DRY, VERY MILD SURROUNDING REDNESS, + 2 PEDAL/ANKLE EDEMA OF BLEEDE AMB AD MARTHA WITH SUPPORT OF CANE A/P: URINARY FREQUENCY EDEMA RESOLVING LEFT INNER ANKLE ABRASION WILL CHECK UA AND AIC ADD HCTZ 25MG DAILY FOR EDEMA CONTINUE BACTROBAN OINTMENT TO ABRASION MONITOR CLINICALLY Vital Signs Temperature 98.8 F 01/10/19 06:00 Pulse Rate 70 01/10/19 06:00 Respiratory Rate 20 01/10/19 06:00 Blood Pressure 149/86 02/25/19 06:00 O2 Sat by Pulse Oximetry (%)
[2019-01-10] MEDS: MUPIROCIN 2% TOPICAL OINTMENT 22 GM TUBE TP SCH ×2 (10:22→22:06)
[2019-01-10] MEDS: SERTRALINE HCL 50 MG TABLET (FP) PO SCH (10:22)
[2019-01-10] MEDS: GABAPENTIN 300 MG CAPSULE (FP) PO SCH ×2 (10:23→22:03)
[2019-01-10] MEDS: BENZTROPINE MESYLATE 1 MG TABLET (FP) PO SCH (10:23)
[2019-01-10] MEDS: DIVALPROEX SODIUM 500 MG TABLET E.C. PO SCH ×2 (10:23→22:03)
[2019-01-10] MEDS: PRENATAL VITAMINS W/ FOLIC ACID TABLET (FP) PO SCH (10:23)
[2019-01-10] MEDS: BUDESONIDE/FORMETEROL FUMARATE 160/4.5 mcg INHALER IH SCH ×2 (10:24→22:05)
[2019-01-10] MEDS: HYDROCHLOROTHIAZIDE 25 MG TABLET (FP) PO SCH (10:34)
[2019-01-10] MEDS ORDERED: PT OWN MED DRAWER 7, Y5N ONE (10:51)
[2019-01-10 19:19] LABS: URINE APPEARANCE CLEAR; URINE BILIRUBIN NEGATIVE (<2.0 mg/dL); URINE COLOR STRAW; URINE GLUCOSE (UA) NEGATIVE (NEGATIVE); URINE KETONE NEGATIVE (NEGATIVE); URINE LEUK ESTERASE NEGATIVE (NEGATIVE); URINE NITRITE NEGATIVE (NEGATIVE); URINE PROTEIN NEGATIVE (NEGATIVE); URINE UROBILINOGEN NEGATIVE mg/dL (0.2-1.0)
[2019-01-10] MEDS: THIAMINE HCL 100 MG TABLET (FP) PO SCH (22:03)
[2019-01-10] MEDS: risperiDONE 2 MG TABLET PO SCH (22:03)
[2019-01-11] MEDS: ALBUTEROL SO4 0.083% IH SOL 2.5 MG/3 ML VIAL.NEB. NEB PRN (03:15)
[2019-01-11] MEDS: PATIENT'S OWN MEDICATION (NON-FORMULARY) (Omeprazole [Omeprazole] 40 MG) PO PRN (06:17)
[2019-01-11] MEDS: NICOTINE POLACRILEX 4 MG GUM BC PRN ×3 (06:17→14:43)
[2019-01-11] MEDS: CYCLOBENZAPRINE HCL 10 MG TABLET (FP) PO PRN (06:17)
[2019-01-11] MEDS: PRENATAL VITAMINS W/ FOLIC ACID TABLET (FP) PO SCH (09:44)
[2019-01-11] MEDS: GABAPENTIN 300 MG CAPSULE (FP) PO SCH ×2 (09:45→21:59)
[2019-01-11] MEDS: MUPIROCIN 2% TOPICAL OINTMENT 22 GM TUBE TP SCH ×2 (09:45→22:00)
[2019-01-11] MEDS: SERTRALINE HCL 50 MG TABLET (FP) PO SCH (09:45)
[2019-01-11] MEDS: BUDESONIDE/FORMETEROL FUMARATE 160/4.5 mcg INHALER IH SCH ×2 (09:45→22:00)
[2019-01-11] MEDS: HYDROCHLOROTHIAZIDE 25 MG TABLET (FP) PO SCH (09:45)
[2019-01-11] MEDS: DIVALPROEX SODIUM 500 MG TABLET E.C. PO SCH ×2 (09:45→21:59)
[2019-01-11] MEDS: BENZTROPINE MESYLATE 1 MG TABLET (FP) PO SCH (09:45)
[2019-01-11] MEDS: ALBUTEROL SO4 8 GM HFA INHALER IH PRN (09:48)
--- NOTE | 2019-01-11 12:14 | PN ---
[facility] Progress Note Note: U/A results negative for UTI, AIC results pending. Follow up AIC results when available. Vital Signs Temperature 98.4 F 01/11/19 07:18 Pulse Rate 79 01/11/19 07:18 Respiratory Rate 20 01/11/19 07:18 Blood Pressure 127/80 01/11/19 07:18 O2 Sat by Pulse Oximetry (%) Laboratory Tests 12/20/18 12/21/18 12/21/18 22:50 10:35 10:35 WBC 15.4 H RBC 5.21 Hgb 14.7 Hct 44.1 MCV 84.6 MCH 28.2 MCHC 33.3 RDW 15.2 D Plt Count 172 MPV 9.7 Absolute Neuts (auto) Neutrophils % Neutrophils % (Manual) Band Neutrophils % Lymphocytes % Lymphocytes % (Manual) Monocytes % Monocytes % (Manual) Eosinophils % Eosinophils % (Manual) Basophils % Basophils % (Manual) Myelocytes % (Man) Promyelocytes % (Man) Blast Cells % (Manual) Nucleated RBC % Metamyelocytes Hypochromia Platelet Estimate Polychromasia Poikilocytosis Anisocytosis Microcytosis Macrocytosis Ovalocytes Sodium 142 Potassium 4.1 Chloride 109 H Carbon Dioxide 25 Anion Gap 7 L BUN 16 Creatinine 1.0 Creat Clearance w eGFR > 60 Random Glucose 135 H Calcium 9.2 Total Bilirubin 0.4 AST 18 ALT 29 Alkaline Phosphatase 74 Total Protein 7.6 Albumin 3.7 Urine Color Yellow Urine Appearance Clear Urine pH 7.0 D Ur Specific [place] 1.029 Urine Protein Negative Urine Glucose (UA) Negative Urine Ketones Negative Urine Blood Negative Urine Nitrite Negative Urine Bilirubin Negative Urine Urobilinogen Negative Ur Leukocyte Esterase Negative Valproic Acid RPR Titer HIV 1&2 Antibody Screen HIV P24 Antigen 12/21/18 12/21/18 12/21/18 10:35 10:35 11:35 WBC RBC Hgb Hct MCV MCH MCHC RDW Plt Count MPV Absolute Neuts (auto) Neutrophils % Neutrophils % (Manual) Band Neutrophils % Lymphocytes % Lymphocytes % (Manual) Monocytes % Monocytes % (Manual) Eosinophils % Eosinophils % (Manual) Basophils % Basophils % (Manual) Myelocytes % (Man) Promyelocytes % (Man) Blast Cells % (Manual) Nucleated RBC % Metamyelocytes Hypochromia Platelet Estimate Polychromasia Poikilocytosis Anisocytosis Microcytosis Macrocytosis Ovalocytes Sodium Potassium Chloride Carbon Dioxide Anion Gap BUN Creatinine Creat Clearance w eGFR Random Glucose Calcium Total Bilirubin AST ALT Alkaline Phosphatase Total Protein Albumin Urine Color Urine Appearance Urine pH Ur Specific [place] Urine Protein Urine Glucose (UA) Urine Ketones Urine Blood Urine Nitrite Urine Bilirubin Urine Urobilinogen Ur Leukocyte Esterase Valproic Acid 35.9 L RPR Titer Nonreactive HIV 1&2 Antibody Screen Negative HIV P24 Antigen Negative 12/30/18 01/10/19 08:05 15:10 WBC 8.5 RBC 4.89 Hgb 13.8 Hct 41.6 MCV 85.2 MCH 28.3 MCHC 33.2 RDW 15.2 Plt Count 190 MPV 9.3 Absolute Neuts (auto) 5.3 Neutrophils % 62.3 Neutrophils % (Manual) 62.6 Band Neutrophils % 0.0 Lymphocytes % 25.1 Lymphocytes % (Manual) 24.3 Monocytes % 10.5 H Monocytes % (Manual) 7 Eosinophils % 1.3 Eosinophils % (Manual) 0.0 Basophils % 0.8 Basophils % (Manual) 0.0 Myelocytes % (Man) 4 H Promyelocytes % (Man) 0 Blast Cells % (Manual) 0 Nucleated RBC % 0 Metamyelocytes 2 Hypochromia 0 Platelet Estimate Normal Polychromasia 0 Poikilocytosis 1+ Anisocytosis 1+ Microcytosis 1+ Macrocytosis 0 Ovalocytes 1+ Sodium Potassium Chloride Carbon Dioxide Anion Gap BUN Creatinine Creat Clearance w eGFR Random Glucose Calcium Total Bilirubin AST ALT Alkaline Phosphatase Total Protein Albumin Urine Color Straw Urine Appearance Clear Urine pH 5.0 D Ur Specific [place] 1.009 L Urine Protein Negative Urine Glucose (UA) Negative Urine Ketones Negative Urine Blood Negative Urine Nitrite Negative Urine Bilirubin Negative Urine Urobilinogen Negative Ur Leukocyte Esterase Negative Valproic Acid RPR Titer HIV 1&2 Antibody Screen HIV P24 Antigen
[2019-01-11] MEDS: THIAMINE HCL 100 MG TABLET (FP) PO SCH (21:58)
[2019-01-11] MEDS: risperiDONE 2 MG TABLET PO SCH (21:59)
[2019-01-11] MEDS: MELATONIN 5 MG TABLETS PO PRN (21:59)
[2019-01-12] MEDS: PATIENT'S OWN MEDICATION (NON-FORMULARY) (Omeprazole [Omeprazole] 40 MG) PO PRN (06:40)
[2019-01-12] MEDS: NICOTINE POLACRILEX 4 MG GUM BC PRN ×4 (06:41→21:02)
[2019-01-12] MEDS: CYCLOBENZAPRINE HCL 10 MG TABLET (FP) PO PRN (06:41)
--- NOTE | 2019-01-12 10:09 | PN ---
[facility] Progress Note Note: PATIENT SEEN FOR REVIEW OF LABS AND URINARY INCONTINENCE AND INCREASED URINATION. PATIENT DENIES FEVER, BURNING UPON URINATION AND PELVIC DISCOMFORT. Laboratory Tests 12/20/18 12/21/18 12/21/18 22:50 10:35 10:35 WBC 15.4 H RBC 5.21 Hgb 14.7 Hct 44.1 MCV 84.6 MCH 28.2 MCHC 33.3 RDW 15.2 D Plt Count 172 MPV 9.7 Absolute Neuts (auto) Neutrophils % Neutrophils % (Manual) Band Neutrophils % Lymphocytes % Lymphocytes % (Manual) Monocytes % Monocytes % (Manual) Eosinophils % Eosinophils % (Manual) Basophils % Basophils % (Manual) Myelocytes % (Man) Promyelocytes % (Man) Blast Cells % (Manual) Nucleated RBC % Metamyelocytes Hypochromia Platelet Estimate Polychromasia Poikilocytosis Anisocytosis Microcytosis Macrocytosis Ovalocytes Sodium 142 Potassium 4.1 Chloride 109 H Carbon Dioxide 25 Anion Gap 7 L BUN 16 Creatinine 1.0 Creat Clearance w eGFR > 60 Random Glucose 135 H Hemoglobin A1c % Calcium 9.2 Total Bilirubin 0.4 AST 18 ALT 29 Alkaline Phosphatase 74 Total Protein 7.6 Albumin 3.7 Urine Color Yellow Urine Appearance Clear Urine pH 7.0 D Ur Specific [place] 1.029 Urine Protein Negative Urine Glucose (UA) Negative Urine Ketones Negative Urine Blood Negative Urine Nitrite Negative Urine Bilirubin Negative Urine Urobilinogen Negative Ur Leukocyte Esterase Negative Valproic Acid RPR Titer HIV 1&2 Antibody Screen HIV P24 Antigen 12/21/18 12/21/18 12/21/18 10:35 10:35 11:35 WBC RBC Hgb Hct MCV MCH MCHC RDW Plt Count MPV Absolute Neuts (auto) Neutrophils % Neutrophils % (Manual) Band Neutrophils % Lymphocytes % Lymphocytes % (Manual) Monocytes % Monocytes % (Manual) Eosinophils % Eosinophils % (Manual) Basophils % Basophils % (Manual) Myelocytes % (Man) Promyelocytes % (Man) Blast Cells % (Manual) Nucleated RBC % Metamyelocytes Hypochromia Platelet Estimate Polychromasia Poikilocytosis Anisocytosis Microcytosis Macrocytosis Ovalocytes Sodium Potassium Chloride Carbon Dioxide Anion Gap BUN Creatinine Creat Clearance w eGFR Random Glucose Hemoglobin A1c % Calcium Total Bilirubin AST ALT Alkaline Phosphatase Total Protein Albumin Urine Color Urine Appearance Urine pH Ur Specific [place] Urine Protein Urine Glucose (UA) Urine Ketones Urine Blood Urine Nitrite Urine Bilirubin Urine Urobilinogen Ur Leukocyte Esterase Valproic Acid 35.9 L RPR Titer Nonreactive HIV 1&2 Antibody Screen Negative HIV P24 Antigen Negative 12/30/18 01/10/19 01/11/19 08:05 15:10 08:30 WBC 8.5 RBC 4.89 Hgb 13.8 Hct 41.6 MCV 85.2 MCH 28.3 MCHC 33.2 RDW 15.2 Plt Count 190 MPV 9.3 Absolute Neuts (auto) 5.3 Neutrophils % 62.3 Neutrophils % (Manual) 62.6 Band Neutrophils % 0.0 Lymphocytes % 25.1 Lymphocytes % (Manual) 24.3 Monocytes % 10.5 H Monocytes % (Manual) 7 Eosinophils % 1.3 Eosinophils % (Manual) 0.0 Basophils % 0.8 Basophils % (Manual) 0.0 Myelocytes % (Man) 4 H Promyelocytes % (Man) 0 Blast Cells % (Manual) 0 Nucleated RBC % 0 Metamyelocytes 2 Hypochromia 0 Platelet Estimate Normal Polychromasia 0 Poikilocytosis 1+ Anisocytosis 1+ Microcytosis 1+ Macrocytosis 0 Ovalocytes 1+ Sodium Potassium Chloride Carbon Dioxide Anion Gap BUN Creatinine Creat Clearance w eGFR Random Glucose Hemoglobin A1c % 6.3 Calcium Total Bilirubin AST ALT Alkaline Phosphatase Total Protein Albumin Urine Color Straw Urine Appearance Clear Urine pH 5.0 D Ur Specific [place] 1.009 L Urine Protein Negative Urine Glucose (UA) Negative Urine Ketones Negative Urine Blood Negative Urine Nitrite Negative Urine Bilirubin Negative Urine Urobilinogen Negative Ur Leukocyte Esterase Negative Valproic Acid RPR Titer HIV 1&2 Antibody Screen HIV P24 Antigen PE: ALERT AND ORIENTED X 3 SKIN WARM AND DRY GI NT, ND NEG PELVIC TENDERNESS, EPISODIC URINARY INCONTINENCE, +POLYURIA A/P: NEWLY DX DIABETIC, AIC 6.3 UA NEG FOR UTI WILL ORDER INCONTINENCE PADS START NCS DIET METFORMIN 500MG BID AC BGM BID AC CONTINUE TO MONITOR
[2019-01-12] MEDS: BUDESONIDE/FORMETEROL FUMARATE 160/4.5 mcg INHALER IH SCH ×2 (10:34→21:02)
[2019-01-12] MEDS: DIVALPROEX SODIUM 500 MG TABLET E.C. PO SCH ×2 (10:35→21:00)
[2019-01-12] MEDS: PRENATAL VITAMINS W/ FOLIC ACID TABLET (FP) PO SCH (10:35)
[2019-01-12] MEDS: ALBUTEROL SO4 8 GM HFA INHALER IH PRN (10:35)
[2019-01-12] MEDS: MUPIROCIN 2% TOPICAL OINTMENT 22 GM TUBE TP SCH ×2 (10:35→21:01)
[2019-01-12] MEDS: BENZTROPINE MESYLATE 1 MG TABLET (FP) PO SCH (10:35)
[2019-01-12] MEDS: GABAPENTIN 300 MG CAPSULE (FP) PO SCH ×2 (10:35→21:01)
[2019-01-12] MEDS: HYDROCHLOROTHIAZIDE 25 MG TABLET (FP) PO SCH (10:35)
[2019-01-12] MEDS: SERTRALINE HCL 50 MG TABLET (FP) PO SCH (10:36)
[2019-01-12] MEDS: metFORMIN HCL 500 MG TABLET (FP) PO SCH (16:52)
[2019-01-12] MEDS: THIAMINE HCL 100 MG TABLET (FP) PO SCH (21:00)
[2019-01-12] MEDS: risperiDONE 2 MG TABLET PO SCH (21:01)
[2019-01-13] MEDS: metFORMIN HCL 500 MG TABLET (FP) PO SCH ×2 (06:58→16:49)
[2019-01-13] MEDS: PATIENT'S OWN MEDICATION (NON-FORMULARY) (Omeprazole [Omeprazole] 40 MG) PO PRN (06:58)
[2019-01-13] MEDS: MUPIROCIN 2% TOPICAL OINTMENT 22 GM TUBE TP SCH ×2 (10:24→21:02)
[2019-01-13] MEDS: SERTRALINE HCL 50 MG TABLET (FP) PO SCH (10:24)
[2019-01-13] MEDS: PRENATAL VITAMINS W/ FOLIC ACID TABLET (FP) PO SCH (10:24)
[2019-01-13] MEDS: BENZTROPINE MESYLATE 1 MG TABLET (FP) PO SCH (10:24)
[2019-01-13] MEDS: GABAPENTIN 300 MG CAPSULE (FP) PO SCH ×2 (10:24→21:02)
[2019-01-13] MEDS: HYDROCHLOROTHIAZIDE 25 MG TABLET (FP) PO SCH (10:24)
[2019-01-13] MEDS: DIVALPROEX SODIUM 500 MG TABLET E.C. PO SCH ×2 (10:24→21:02)
[2019-01-13] MEDS: ALBUTEROL SO4 8 GM HFA INHALER IH PRN (10:25)
[2019-01-13] MEDS: BUDESONIDE/FORMETEROL FUMARATE 160/4.5 mcg INHALER IH SCH ×2 (10:25→21:02)
[2019-01-13] MEDS: NICOTINE POLACRILEX 4 MG GUM BC PRN ×2 (10:26→14:14)
[2019-01-13] MEDS: CYCLOBENZAPRINE HCL 10 MG TABLET (FP) PO PRN (14:13)
[2019-01-13] MEDS: risperiDONE 2 MG TABLET PO SCH (21:01)
[2019-01-13] MEDS: THIAMINE HCL 100 MG TABLET (FP) PO SCH (21:01)
[2019-01-14] MEDS: metFORMIN HCL 500 MG TABLET (FP) PO SCH ×2 (06:22→16:46)
[2019-01-14] MEDS: PATIENT'S OWN MEDICATION (NON-FORMULARY) (Omeprazole [Omeprazole] 40 MG) PO PRN (06:23)
[2019-01-14] MEDS: PRENATAL VITAMINS W/ FOLIC ACID TABLET (FP) PO SCH (10:34)
[2019-01-14] MEDS: GABAPENTIN 300 MG CAPSULE (FP) PO SCH ×2 (10:35→21:51)
[2019-01-14] MEDS: HYDROCHLOROTHIAZIDE 25 MG TABLET (FP) PO SCH (10:35)
[2019-01-14] MEDS: MUPIROCIN 2% TOPICAL OINTMENT 22 GM TUBE TP SCH ×2 (10:35→21:50)
[2019-01-14] MEDS: BENZTROPINE MESYLATE 1 MG TABLET (FP) PO SCH (10:35)
[2019-01-14] MEDS: DIVALPROEX SODIUM 500 MG TABLET E.C. PO SCH ×2 (10:35→21:51)
[2019-01-14] MEDS: SERTRALINE HCL 50 MG TABLET (FP) PO SCH (10:35)
[2019-01-14] MEDS: BUDESONIDE/FORMETEROL FUMARATE 160/4.5 mcg INHALER IH SCH ×2 (10:35→21:52)
[2019-01-14] MEDS: NICOTINE POLACRILEX 4 MG GUM BC PRN ×3 (10:36→21:54)
[2019-01-14] MEDS: CYCLOBENZAPRINE HCL 10 MG TABLET (FP) PO PRN ×3 (10:36→21:52)
[2019-01-14] MEDS: THIAMINE HCL 100 MG TABLET (FP) PO SCH (21:50)
[2019-01-14] MEDS: risperiDONE 2 MG TABLET PO SCH (21:51)
[2019-01-15] MEDS: PATIENT'S OWN MEDICATION (NON-FORMULARY) (Omeprazole [Omeprazole] 40 MG) PO PRN (06:37)
[2019-01-15] MEDS: NICOTINE POLACRILEX 4 MG GUM BC PRN ×2 (06:38→10:00)
[2019-01-15] MEDS: metFORMIN HCL 500 MG TABLET (FP) PO SCH ×2 (06:38→16:49)
[2019-01-15] MEDS: CYCLOBENZAPRINE HCL 10 MG TABLET (FP) PO PRN ×2 (07:24→21:50)
[2019-01-15] MEDS: PRENATAL VITAMINS W/ FOLIC ACID TABLET (FP) PO SCH (09:57)
[2019-01-15] MEDS: HYDROCHLOROTHIAZIDE 25 MG TABLET (FP) PO SCH (09:57)
[2019-01-15] MEDS: GABAPENTIN 300 MG CAPSULE (FP) PO SCH ×2 (09:57→21:49)
[2019-01-15] MEDS: BENZTROPINE MESYLATE 1 MG TABLET (FP) PO SCH (09:57)
[2019-01-15] MEDS: SERTRALINE HCL 50 MG TABLET (FP) PO SCH (09:57)
[2019-01-15] MEDS: DIVALPROEX SODIUM 500 MG TABLET E.C. PO SCH ×2 (09:57→21:49)
[2019-01-15] MEDS: MUPIROCIN 2% TOPICAL OINTMENT 22 GM TUBE TP SCH ×2 (09:58→21:51)
[2019-01-15] MEDS: BUDESONIDE/FORMETEROL FUMARATE 160/4.5 mcg INHALER IH SCH ×2 (09:58→21:51)
[2019-01-15] MEDS: ALBUTEROL SO4 8 GM HFA INHALER IH PRN (09:59)
[2019-01-15] MEDS: THIAMINE HCL 100 MG TABLET (FP) PO SCH (21:49)
[2019-01-15] MEDS: risperiDONE 2 MG TABLET PO SCH (21:49)
[2019-01-16] MEDS: CYCLOBENZAPRINE HCL 10 MG TABLET (FP) PO PRN ×2 (06:51→16:52)
[2019-01-16] MEDS: PATIENT'S OWN MEDICATION (NON-FORMULARY) (Omeprazole [Omeprazole] 40 MG) PO PRN (06:51)
[2019-01-16] MEDS: NICOTINE POLACRILEX 4 MG GUM BC PRN ×3 (06:52→16:52)
[2019-01-16] MEDS: metFORMIN HCL 500 MG TABLET (FP) PO SCH ×2 (07:01→16:50)
[2019-01-16] MEDS: MUPIROCIN 2% TOPICAL OINTMENT 22 GM TUBE TP SCH ×2 (10:19→21:58)
[2019-01-16] MEDS: HYDROCHLOROTHIAZIDE 25 MG TABLET (FP) PO SCH (10:19)
[2019-01-16] MEDS: BUDESONIDE/FORMETEROL FUMARATE 160/4.5 mcg INHALER IH SCH ×2 (10:19→21:59)
[2019-01-16] MEDS: BENZTROPINE MESYLATE 1 MG TABLET (FP) PO SCH (10:19)
[2019-01-16] MEDS: DIVALPROEX SODIUM 500 MG TABLET E.C. PO SCH ×2 (10:19→21:58)
[2019-01-16] MEDS: PRENATAL VITAMINS W/ FOLIC ACID TABLET (FP) PO SCH (10:19)
[2019-01-16] MEDS: GABAPENTIN 300 MG CAPSULE (FP) PO SCH ×2 (10:19→21:58)
[2019-01-16] MEDS: SERTRALINE HCL 50 MG TABLET (FP) PO SCH (10:19)
[2019-01-16] MEDS: ALBUTEROL SO4 8 GM HFA INHALER IH PRN (10:21)
[2019-01-16] MEDS: risperiDONE 2 MG TABLET PO SCH (21:58)
[2019-01-16] MEDS: THIAMINE HCL 100 MG TABLET (FP) PO SCH (21:58)
[2019-01-17] MEDS: NICOTINE POLACRILEX 4 MG GUM BC PRN ×3 (05:58→22:02)
[2019-01-17] MEDS: PATIENT'S OWN MEDICATION (NON-FORMULARY) (Omeprazole [Omeprazole] 40 MG) PO PRN (05:58)
[2019-01-17] MEDS: CYCLOBENZAPRINE HCL 10 MG TABLET (FP) PO PRN ×2 (05:59→22:02)
[2019-01-17] MEDS: metFORMIN HCL 500 MG TABLET (FP) PO SCH ×2 (06:02→16:29)
[2019-01-17] MEDS: DIVALPROEX SODIUM 500 MG TABLET E.C. PO SCH ×2 (10:01→22:00)
[2019-01-17] MEDS: HYDROCHLOROTHIAZIDE 25 MG TABLET (FP) PO SCH (10:01)
[2019-01-17] MEDS: GABAPENTIN 300 MG CAPSULE (FP) PO SCH ×2 (10:01→22:00)
[2019-01-17] MEDS: SERTRALINE HCL 50 MG TABLET (FP) PO SCH (10:01)
[2019-01-17] MEDS: PRENATAL VITAMINS W/ FOLIC ACID TABLET (FP) PO SCH (10:01)
[2019-01-17] MEDS: BUDESONIDE/FORMETEROL FUMARATE 160/4.5 mcg INHALER IH SCH ×2 (10:02→22:01)
[2019-01-17] MEDS: ALBUTEROL SO4 8 GM HFA INHALER IH PRN (10:02)
[2019-01-17] MEDS: BENZTROPINE MESYLATE 1 MG TABLET (FP) PO SCH (10:03)
[2019-01-17] MEDS: MUPIROCIN 2% TOPICAL OINTMENT 22 GM TUBE TP SCH ×2 (10:03→22:01)
[2019-01-17] MEDS: THIAMINE HCL 100 MG TABLET (FP) PO SCH (22:00)
[2019-01-17] MEDS: risperiDONE 2 MG TABLET PO SCH (22:00)
[2019-01-18] MEDS: CYCLOBENZAPRINE HCL 10 MG TABLET (FP) PO PRN ×2 (06:22→21:46)
[2019-01-18] MEDS: PATIENT'S OWN MEDICATION (NON-FORMULARY) (Omeprazole [Omeprazole] 40 MG) PO PRN (06:22)
[2019-01-18] MEDS: NICOTINE POLACRILEX 4 MG GUM BC PRN ×4 (06:22→21:48)
[2019-01-18] MEDS: metFORMIN HCL 500 MG TABLET (FP) PO SCH ×2 (06:23→16:40)
[2019-01-18] MEDS: GABAPENTIN 300 MG CAPSULE (FP) PO SCH ×2 (10:27→21:44)
[2019-01-18] MEDS: BENZTROPINE MESYLATE 1 MG TABLET (FP) PO SCH (10:27)
[2019-01-18] MEDS: SERTRALINE HCL 50 MG TABLET (FP) PO SCH (10:27)
[2019-01-18] MEDS: DIVALPROEX SODIUM 500 MG TABLET E.C. PO SCH ×2 (10:27→21:44)
[2019-01-18] MEDS: HYDROCHLOROTHIAZIDE 25 MG TABLET (FP) PO SCH (10:27)
[2019-01-18] MEDS: PRENATAL VITAMINS W/ FOLIC ACID TABLET (FP) PO SCH (10:27)
[2019-01-18] MEDS: BUDESONIDE/FORMETEROL FUMARATE 160/4.5 mcg INHALER IH SCH ×2 (10:28→21:45)
[2019-01-18] MEDS: MUPIROCIN 2% TOPICAL OINTMENT 22 GM TUBE TP SCH ×2 (10:28→21:45)
[2019-01-18] MEDS: THIAMINE HCL 100 MG TABLET (FP) PO SCH (21:44)
[2019-01-18] MEDS: risperiDONE 2 MG TABLET PO SCH (21:44)
[2019-01-18] MEDS: ALBUTEROL SO4 8 GM HFA INHALER IH PRN (21:45)
[2019-01-19] MEDS: metFORMIN HCL 500 MG TABLET (FP) PO SCH ×2 (06:18→16:39)
[2019-01-19] MEDS: PATIENT'S OWN MEDICATION (NON-FORMULARY) (Omeprazole [Omeprazole] 40 MG) PO PRN (06:20)
[2019-01-19 07:25] VITALS: TEMP 98.5
[2019-01-19] MEDS: SERTRALINE HCL 50 MG TABLET (FP) PO SCH (10:18)
[2019-01-19] MEDS: GABAPENTIN 300 MG CAPSULE (FP) PO SCH ×2 (10:18→21:40)
[2019-01-19] MEDS: PRENATAL VITAMINS W/ FOLIC ACID TABLET (FP) PO SCH (10:18)
[2019-01-19] MEDS: BENZTROPINE MESYLATE 1 MG TABLET (FP) PO SCH (10:18)
[2019-01-19] MEDS: HYDROCHLOROTHIAZIDE 25 MG TABLET (FP) PO SCH (10:18)
[2019-01-19] MEDS: DIVALPROEX SODIUM 500 MG TABLET E.C. PO SCH ×2 (10:18→21:40)
[2019-01-19] MEDS: BUDESONIDE/FORMETEROL FUMARATE 160/4.5 mcg INHALER IH SCH ×2 (10:19→21:48)
[2019-01-19] MEDS: MUPIROCIN 2% TOPICAL OINTMENT 22 GM TUBE TP SCH ×2 (10:19→21:48)
[2019-01-19] MEDS: CYCLOBENZAPRINE HCL 10 MG TABLET (FP) PO PRN ×2 (10:21→21:40)
--- NOTE | 2019-01-19 15:14 | PN ---
[facility] Progress Note Note: Patient will be discharged tomorrow. Scripts for 30 days supply of medications( Depakote, Risperdal, Zoloft, Cogentin) will be electronically tranmitted to [facility] at [address] [place] [address] [id number], [place] [id number]
[2019-01-19] MEDS: NICOTINE POLACRILEX 4 MG GUM BC PRN ×2 (18:44→21:41)
[2019-01-19] MEDS: THIAMINE HCL 100 MG TABLET (FP) PO SCH (21:39)
[2019-01-19] MEDS: risperiDONE 2 MG TABLET PO SCH (21:40)
[2019-01-20] MEDS: PATIENT'S OWN MEDICATION (NON-FORMULARY) (Omeprazole [Omeprazole] 40 MG) PO PRN (05:47)
[2019-01-20] MEDS: metFORMIN HCL 500 MG TABLET (FP) PO SCH (06:22)
[2019-01-20 07:14] VITALS: BP 141/85; PULSE 76
--- NOTE | 2019-01-20 08:36 | PN ---
[facility] Progress Note Note: For discharge today. PCP is Chi Tan in [place]. Aftercare at [facility] today. Has his own medications and does not need prescriptions.
[2019-01-20] MEDS: CYCLOBENZAPRINE HCL 10 MG TABLET (FP) PO PRN (09:07)
[2019-01-20] MEDS: PRENATAL VITAMINS W/ FOLIC ACID TABLET (FP) PO SCH (09:07)
[2019-01-20] MEDS: BENZTROPINE MESYLATE 1 MG TABLET (FP) PO SCH (09:07)
[2019-01-20] MEDS: GABAPENTIN 300 MG CAPSULE (FP) PO SCH (09:07)
[2019-01-20] MEDS: SERTRALINE HCL 50 MG TABLET (FP) PO SCH (09:07)
[2019-01-20] MEDS: HYDROCHLOROTHIAZIDE 25 MG TABLET (FP) PO SCH (09:07)
[2019-01-20] MEDS: DIVALPROEX SODIUM 500 MG TABLET E.C. PO SCH (09:07)
[2019-01-20] MEDS: BUDESONIDE/FORMETEROL FUMARATE 160/4.5 mcg INHALER IH SCH (09:09)
[2019-01-20] MEDS: MUPIROCIN 2% TOPICAL OINTMENT 22 GM TUBE TP SCH (09:09)
[2019-01-20] MEDS: NICOTINE POLACRILEX 4 MG GUM BC PRN (09:10)
== END 2019-01-20 09:15 | disposition home or self-care (01) | DRG 895 ==
LOC: YASAS 17:33 → Y3W 20:51
PROVIDERS: ADMIT Neuromusculoskeletal Medicine & OMM; ATTEND Neuromusculoskeletal Medicine & OMM
PROC: HZ42ZZZ Group Counseling for Substance Abuse Treatment, Cognitive-Behavioral (ICD-10-PCS; principal; 2018-12-20)
DX: F10.20 Alcohol dependence, uncomplicated (principal); J18.9 Pneumonia, unspecified organism; F14.20 Cocaine dependence, uncomplicated; F19.282 Other psychoactive substance dependence with psychoactive substance-induced sleep disorder; F17.210 Nicotine dependence, cigarettes, uncomplicated; F19.24 Other psychoactive substance dependence with psychoactive substance-induced mood disorder; F25.9 Schizoaffective disorder, unspecified; E11.9 Type 2 diabetes mellitus without complications; R35.0 Frequency of micturition; R60.0 Localized edema; M54.5 Low back pain; K21.9 Gastro-esophageal reflux disease without esophagitis; M10.9 Gout, unspecified; B18.2 Chronic viral hepatitis C; Z87.11 Personal history of peptic ulcer disease
CPT/HCPCS: 36415; 71045-TC-FY; 71046-TC-FY; 80053; 80164; 81003; 82962; 83036; 85025; 85027; 86593; 87389; 90853; 93005; 93010; 94640

== ENCOUNTER 2024-08-08 09:55 | Emergency (ER) | payer OTHER ==
[2024-08-08 10:15] VITALS: BP 130/74; PULSE 50; RESP 16; TEMP 97.7; BMI 29.8
[2024-08-08] MEDS ORDERED: ONDANSETRON 4 MG/2 ML VIAL ONE ×2 (10:46→11:46)
[2024-08-08 11:09] LABS: BASO % 0.5 % (0-2.0); EOS % 2.5 % (0-4.5); HEMATOCRIT 42.4 % (35.4-49); HEMOGLOBIN 14.2 GM/dL (11.7-16.9); MCH 29.8 pg (25.7-33.7); MCHC 33.4 g/dl (32.0-35.9); MEAN CELL VOLUME 89.3 fl (80-96); MEAN PLT VOLUME 8.9 fl (7.5-11.1); MONO % 10.9 % (3.8-10.2); NEUT % 51.1 % (42.8-82.8); PLATELET COUNT 147 10^3/uL (134-434); RBC 4.75 M/mm3 (4.00-5.60)
[2024-08-08] MEDS: SODIUM CHLORIDE 1,000 ML IV STA (11:51)
[2024-08-08] MEDS: ONDANSETRON 4 MG/2 ML VIAL IVPUSH ONE (11:51)
[2024-08-08 12:05] LABS: POTASSIUM 4.2 mmol/L (3.5-5.1)
[2024-08-08] MEDS ORDERED: ACETAMINOPHEN INJECTION 100 ML ONE (12:08)
[2024-08-08] MEDS: ACETAMINOPHEN 1000 MG/100 ML BAG IVPB ONE (12:11)
[2024-08-08 12:12] LABS: CALCIUM 8.4 mg/dL (8.5-10.1)
[2024-08-08 12:13] LABS: ALBUMIN 3.3 g/dl (3.4-5.0); MAGNESIUM 2.2 mg/dL (1.8-2.4)
[2024-08-08 12:15] LABS: CREATININE 0.8 mg/dL (0.55-1.3)
[2024-08-08 12:18] LABS: BILIRUBIN,TOTAL 0.2 mg/dL (0.2-1); TOT PROT 6.7 g/dl (6.4-8.2)
== END 2024-08-08 14:15 | disposition home or self-care (01) ==
LOC: JER 09:55
PROC: 3E033NZ Introduction of Analgesics, Hypnotics, Sedatives into Peripheral Vein, Percutaneous Approach (ICD-10-PCS; principal; 2024-08-08)
PROC: 3E033GC Introduction of Other Therapeutic Substance into Peripheral Vein, Percutaneous Approach (ICD-10-PCS; 2024-08-08)
PROC: 3E0337Z Introduction of Electrolytic and Water Balance Substance into Peripheral Vein, Percutaneous Approach (ICD-10-PCS; 2024-08-08)
DX: R10.11 Right upper quadrant pain (principal)
CPT/HCPCS: 36415; 76705-TC; 80053; 80164; 83605; 83690; 83735; 85025; 93005; 93010; 96374; 96375; 99285-25; J0131